=== PATIENT | male | born 1980 | race Caucasian/White ===

== ENCOUNTER 2017-09-16 01:47 | Inpatient (IN) | payer SELFPAY ==
[~2017-09-16] VITALS: Ht 182.9 cm; Wt 74.0 kg
[2017-09-16 02:34] LABS: HEMATOCRIT 36.3 % (38.0-50.0); HEMOGLOBIN 12.3 G/DL (12.5-16.6); MCH 33.5 PG (29.0-34.0); MCHC 33.9 G/DL (30.0-36.0); MCV 98.9 FL (86-99); RBC DIS.WIDTH-CV 17.4 % (11.8-14.6); RBC DIS.WIDTH-SD 61.4 % (39-53); RED BLOOD COUNT 3.67 M/uL (4.00-5.50); WHITE BLOOD COUNT 10.2 K/uL (4.1-10.2)
[2017-09-16 02:40] LABS: INTER. NORMALIZED RATIO 1.4
[2017-09-16 02:43] LABS: PTT 36.8 SEC (25-37)
[2017-09-16 02:44] LABS: ALBUMIN 2.9 g/dL (3.2-4.8); CHLORIDE 93 mEq/L (99-109); POTASSIUM 2.8 mEq/L (3.7-5.4); SODIUM 136 mEq/L (136-147)
[2017-09-16 02:47] LABS: GLUCOSE 96 mg/dL (70-99)
[2017-09-16 02:48] LABS: TOTAL BILIRUBIN 1.7 mg/dL (0.0-1.0)
[2017-09-16 02:50] LABS: ALKALINE PHOSPHATASE 262 IU/L (3-129); CREATININE 0.6 mg/dL (0.6-1.3); GFR ESTIMATE (CALCULATED) > 59 mL/min/ (58.99-99999)
[2017-09-16 02:51] LABS: UREA NITROGEN (BUN) 8 mg/dL (9-23)
[2017-09-16 02:52] LABS: AST (GOT) 75 IU/L (2-34)
[2017-09-16 02:53] LABS: ALT (GPT) 26 IU/L (3-49)
[2017-09-16 02:54] LABS: LIPASE 51 U/L (1.0-51.0)
[2017-09-16 03:53] LABS: PLAT.SUFFICIENCY DECREASED; PLATELET COUNT 147 K/uL (156-360)
[2017-09-16] MEDS ORDERED: ADVIL,NUPRIN,M200 MG PO (07:16)
[2017-09-16 07:23] LABS: MAGNESIUM 1.7 mg/dl (1.3-2.7)
[2017-09-16 08:17] VITALS: BP 141/98
[2017-09-16 08:21] LABS: ALBUMIN 2.6 G/DL (3.2-4.8)
[2017-09-16 10:55] LABS: HEPATITIS B SURFACE ANTIGEN Nonreactive
[2017-09-16 10:56] LABS: ANTI-HEPATITIS A VIRUS (IGM) Nonreactive
[2017-09-16 10:57] LABS: ANTI-HEPATITIS B CORE (IGM) Nonreactive; HIV-1/2 AB/AG COMBO Nonreactive
[2017-09-16 10:59] LABS: HEPATITIS C ANTIBODY REACTIVE
[2017-09-16 11:09] LABS: TYPE OF FLUID PARACENTESIS
[2017-09-16 11:50] LABS: APPEARANCE SL. HAZY-YELLOW; BODY FLUID EOSINOPHILS 0 % (0-25); BODY FLUID RBC'S < 1000 /MM^3 (0-100); BODY FLUID WBC'S 141 /MM^3 (0-500); MONONUCLEAR WBC'S 85 %; POLYNUCLEAR WBC'S 15 % (0-25)
[2017-09-16 12:21] LABS: BODY FLUID GLUCOSE 126 MG/DL; BODY FLUID LDH 34 IU/L; BODY FLUID PROTEIN < 3.0 G/DL
[2017-09-16 13:16] LABS: CHLORIDE 98 MEQ/L (99-109); CREATININE 0.5 MG/DL (0.6-1.3); GFR ESTIMATE (CALCULATED) > 59 mL/min/ (58.99-99999); GLUCOSE 101 mg/dL (70-99); POTASSIUM 3.1 MEQ/L (3.7-5.4); SODIUM 138 MEQ/L (136-147); UREA NITROGEN (BUN) 7 mg/dL (9-23)
[2017-09-16 15:15] VITALS: BP 116/66
[2017-09-16 16:07] LABS: APPEARANCE CLEAR ((CLEAR)); BILIRUBIN SMALL; BLOOD NEGATIVE; GLUCOSE (STRIP) NEGATIVE; KETONES NEGATIVE; LEUKOCYTES NEGATIVE; NITRITE NEGATIVE; PROTEIN (STRIP) 30; SPECIFIC GRAVITY 1.046 (1.000-1.030)
[2017-09-16 16:27] LABS: COLOR YELLOW ((YELLOW))
[2017-09-16 16:28] LABS: BENZODIAZEPINES, URINE SCREEN Negative (200 ng/mL)
[2017-09-16 18:48] LABS: STOOL OCCULT BLD 1ST SPECIMEN NEGATIVE
[2017-09-17 22:52] LABS: IgG Subclass 4 (QD) 29.7 mg/dL (4.0-86.0)
== END 2017-09-16 22:04 | disposition left against medical advice (07) | DRG 433 ==
LOC: EME 01:47 → EDOF 05:40 → ENRESERV 05:41 → 5SOUTH 07:55
PROVIDERS: Internal Medicine; Physician Assistant
PROC: 0W9G3ZZ Drainage of Peritoneal Cavity, Percutaneous Approach (ICD-10-PCS; principal; 2017-09-16)
DX: K70.31 Alcoholic cirrhosis of liver with ascites (principal); F10.239 Alcohol dependence with withdrawal, unspecified; B19.20 Unspecified viral hepatitis C without hepatic coma; K76.6 Portal hypertension; K76.0 Fatty (change of) liver, not elsewhere classified; D68.9 Coagulation defect, unspecified; E87.6 Hypokalemia; F17.200 Nicotine dependence, unspecified, uncomplicated; M62.58 Muscle wasting and atrophy, not elsewhere classified, other site; E88.09 Other disorders of plasma-protein metabolism, not elsewhere classified
CPT/HCPCS: 49083; 71260; 74177; 80048; 80048 91; 80074; 80076; 80306 90; 81003; 82040; 82105 90; 82140; 82272; 82784 90; 82787 90; 82945; 83605; 83615 91; 83690; 83735; 84157; 85027; 85610; 85730; 87070; 87075; 87205; 87389; 88108; 89051; 93005; 99281; 99285; J2060; J2405; J3010; J3411; J3480; J7030